=== PATIENT | female | born 1975 | race African-American/Black ===

== ENCOUNTER 2016-12-28 12:11 | Day surgery (SDC) | payer MEDICARE ==
[~2016-12-28] VITALS: Ht 170.2 cm; Wt 65.9 kg
[~2016-12-28 12:11] MED LIST: HYDROCODONE-APA1 TAB PO; RENAGEL800 MG PO; TUMS500 MG PO; XANAX2 MG PO
[2016-12-28] MEDS ORDERED: NORVASC10 MG PO ×2 (14:10)
[2016-12-28] MEDS ORDERED: CATAPRES0.3 MG PO ×2 (14:11→14:12)
[2016-12-28 14:23] VITALS: BP 174/113; Ht 170.2 cm; Wt 65.9 kg
[2016-12-28 14:58] LABS: HEMATOCRIT 28.4 % (36.0-48.0); HEMOGLOBIN 9.4 g/dL (12-16); MCH 29.5 pg (26.0-34.0); MCHC 33.1 g/dL (31.0-37.0); RBC 3.19 10x6/uL (4.00-5.40); RDW 14.9 % (11.5-14.5); WBC 6.6 10x3/uL (4.8-10.8)
[2016-12-28 15:08] LABS: ANION GAP 20.5 mmol/L (8-16); CALCIUM 10.5 mg/dL (8.5-10.1); CREATININE - SERUM 14.8 mg/dL (0.6-1.3); POTASSIUM - SERUM 4.5 mmol/L (3.5-5.1)
[2016-12-28 15:09] LABS: INR 1.1 (0.85-1.17); PROTIME 14.1 SECONDS (11.6-15.0)
--- NOTE | 2016-12-28 16:42 | NUR ---
1550- DR. ECHEVERRIA AT BEDSIDE, DISCUSSED FINDINGS WITH PT 1625- IV D/C'D, TESSIO TO LEFT THIGH, FLUSHED AND 2.2 ML OF 1000U/ML HEPARIN PLACED IN LINE, CLAMPED, AND CAPPED WITH PRN ADAPTOR AND ALCOHOL SWAB CAP 1630- DISCHARGE INSTRUCTIONS COMPLETED. PT VERBALIZED UNDERSTANDING. PAPERWORK SIGNED. 1635- PT DISCHARGED VIA WHEELCHAIR WITH DAUGHTER
--- NOTE | 2017-01-17 11:24 | OP ---
PATIENT NAME: ROSHNI HERNANDEZ MEDICAL RECORD: [id number] :71 LOCATION:D.OPS ADMISSION DATE: SURGEON: VANESSA ECHEVERRIA MD DATE OF OPERATION: 12/28/2016 PROCEDURE: Colonoscopy with snare polypectomy. CITY MANAGER: Vanessa Echeverria MD. SCOPE: Olympus video colonoscope. MEDICATIONS: Per TIVA anesthesia. The patient used 500 mg of propofol IV push for this procedure in small increments, and O2 4 liters. INDICATION FOR THE PROCEDURE: Hematochezia. INDICATION FOR TIVA: End-stage renal disease, hypothyroidism, hypertension. FINDINGS: Informed consent was given. The patient was made comfortable with the above medications. After reaching an adequate level of sedation by slow IV push, the patient was placed on her left side. The rectal exam revealed good sphincter tone, no fissures or fistulas were appreciated. No external skin tags were seen. The colonoscope was advanced to the cecum where the ileocecal valve and appendiceal orifice were identified. The patient had some pelvic adhesions adding to the difficulty of this procedure. On withdrawal of the scope, very mild left-sided diverticulosis without diverticulitis was appreciated. At the distal sigmoid area at approximately 20 cm, a 1.5-cm polyp on a stalk was noted and was removed first with a snare then the visible vessel was photocoagulated with hot biopsy forcep technique. On retroflexion and final withdrawal of the scope, internal hemorrhoids were noted. IMPRESSION: 1. A 1.5 cm pedunculated polyp in the distal sigmoid area at 20 cm. The polyp was 1.5 cm in size and was removed via snare biopsy. The residual polyp and visible vessel was then photocoagulated with 20 joules with a good result. 2. Very mild left-sided diverticulosis without diverticulitis. 3. Internal hemorrhoids, which are also the cause of the patient's hematochezia. The polyp is certainly very vascular and also was contributing to the problem of jessi hematochezia. 4. Mild left-sided diverticulosis without diverticulitis. PLAN: 1. No aspirin or anti-inflammatory drugs times 14 days. 2. High-fiber diet. 3. Return to clinic on a p.r.n. basis. TRANSINT:[id number] Voice Confirmation ID: [id number] DOCUMENT ID: [id number] OPERATIVE REPORT [id number] ROSHNI HERNANDEZ BRENDA MD at 1124 CC: KARLA ODTSON [id number] DICTATION DATE: 12/28/16 1525 INVESTIGATOR CASH SHORTAGE: 12/28/16 1600 [facility] 12/28/16 [place] [id number] [place] [id number]
== END 2016-12-28 16:35 | disposition home or self-care (01) ==
LOC: D.OPS 12:11
PROVIDERS: Anesthesiology
DX: D12.5 Benign neoplasm of sigmoid colon (principal); K57.30 Diverticulosis of large intestine without perforation or abscess without bleeding; K64.8 Other hemorrhoids; I12.0 Hypertensive chronic kidney disease with stage 5 chronic kidney disease or end stage renal disease; N18.6 End stage renal disease; E03.9 Hypothyroidism, unspecified

== ENCOUNTER 2017-04-05 10:58 | Day surgery (SDC) | payer MEDICARE ==
[~2017-04-05] VITALS: Ht 170.2 cm; Wt 68.2 kg
--- NOTE | ~2017-04-05 | OP ---
PATIENT NAME: JUNE HERNANDEZ MEDICAL RECORD: [id number] :71 LOCATION:FELY ADMISSION DATE: SURGEON: AJAY IBARRA DO DATE OF OPERATION: 04/05/2017 PROCEDURE: EGD. INDICATIONS: History of gastric ulcers. This is a 12-week followup procedure. SCOPE: Olympus video gastroscope. MEDICATIONS: Propofol 200 mg IV per anesthesia. ESTIMATED BLOOD LOSS: None. COMPLICATIONS: None. FINDINGS: Informed consent was given. The patient was made comfortable with the above medication. After reaching an adequate level of sedation by slow IV push, the patient was placed on her left side. The endoscope was then advanced under direct visualization through the mouth to the level of the second portion of the duodenum. The upper esophagus appeared normal. The middle and distal thirds of the esophagus had a few small esophageal erosions. One of these erosions did have some oozing when gently probed. At the GE junction, there was evidence of moderate LA class C, reflux induced esophagitis. The endoscope was advanced beyond the GE junction and retroflexed to view the cardia, where a small sliding hiatal hernia was present. In the fundus and body of the stomach, there was a small amount of food retention. There was also some edema and congestion involving the body of the stomach. Scope was advanced down to the antrum and prepyloric region where the previously identified ulcers appeared to be healed. There were a few erosions in the antrum and prepyloric region. The scope was advanced beyond the pylorus into the duodenum where the bulb and second portion of the duodenum appeared normal. The endoscope was then withdrawn from the patient. The patient tolerated the procedure well and there were no complications. IMPRESSION: 1. Few small esophageal erosions. 2. LA class C, reflux induced esophagitis. 3. Small sliding hiatal hernia. 4. Food retention. 5. Edematous gastritis of the body. 6. Healed gastric ulcers. 7. Gastric erosions in the antrum and prepyloric region. 8. Normal duodenum. PLAN AND RECOMMENDATIONS: 1. Discharge home when recovery parameters are met. 2. Continue current diet. 3. Continue current medications. 4. Add Pepcid 40 mg p.o. at bedtime to medication regimen. 5. Add Nexium 40 mg daily in a.m. times 30 days. 6. Continue Carafate. 7. Follow up in GI clinic as needed. OPERATIVE REPORT [id number] JUNE HERNANDEZ TRANSINT:[id number] Voice Confirmation ID: [id number] DOCUMENT ID: [id number] AJAY IBARRA DO CC: [id number] DICTATION DATE: 04/05/171447 ELECTRONIC INTEGRATED SYSTEMS MECHANIC: 04/05/17 2357 [facility] 04/05/17 [place] [id number] [place] [id number]
[~2017-04-05 10:58] MED LIST changes: +CATAPRES0.3 MG PO; +NORVASC10 MG PO
[2017-04-05 12:29] LABS: BASOPHILS 0.5 % (0-2); EOSINOPHILS 5.7 % (0-7); HEMATOCRIT 26.5 % (36.0-48.0); HEMOGLOBIN 8.8 g/dL (12-16); IMMATURE GRANULOCYTES 0.2 % (0-5); LYMPHOCYTES 19.5 % (15-50); MCH 31.3 pg (26.0-34.0); MCHC 33.2 g/dL (31.0-37.0); MCV 94.3 fL (80.0-100.0); MEAN PLATELET VOLUME 10.7 fL (7.4-10.4); MONOCYTES 6.7 % (2-11); NEUTROPHILS 67.4 % (40-80); PLATELET COUNT 137 10x3/uL (130-400); RBC 2.81 10x6/uL (4.00-5.40); RDW 14.9 % (11.5-14.5); WBC 5.8 10x3/uL (4.8-10.8)
[2017-04-05 12:37] LABS: APTT 30.9 SECONDS (22.8-39.4); INR 1.08 (0.85-1.17); PROTIME 13.9 SECONDS (11.6-15.0)
[2017-04-05 12:40] LABS: CALCIUM 9.6 mg/dL (8.5-10.1); CREATININE - SERUM 9.2 mg/dL (0.6-1.3)
[2017-04-05 13:21] VITALS: Ht 170.2 cm; Wt 68.2 kg
--- NOTE | 2017-04-05 16:41 | NUR ---
1620--DIALYSIS CATHETER FLUSHED AND IV DC'D. PT UP TO DRESS. HARRIS BROWN 4837--DISCHARGE INSTRUCTIONS GIVEN, PT VERBALIZES UNDERSTANDING. PT OFF UNIT VIA WC. HARRIS BROWN
== END 2017-04-05 16:35 | disposition home or self-care (01) ==
LOC: D.OPS 10:58
PROVIDERS: Anesthesiology
DX: K22.10 Ulcer of esophagus without bleeding (principal); K44.9 Diaphragmatic hernia without obstruction or gangrene; K21.0 Gastro-esophageal reflux disease with esophagitis; K29.70 Gastritis, unspecified, without bleeding; K25.9 Gastric ulcer, unspecified as acute or chronic, without hemorrhage or perforation; Z01.812 Encounter for preprocedural laboratory examination

== ENCOUNTER 2017-04-17 06:45 | Day surgery (SDC) | payer MEDICARE ==
[~2017-04-17] VITALS: Ht 170.2 cm; Wt 67.3 kg
--- NOTE | ~2017-04-17 | HP ---
PATIENT: JUNE HERNANDEZ MEDICAL RECORD: [id number] ACCOUNT: [id number] LOCATION:FELY : 71 ADMISSION DATE: 04/17/17 HISTORY AND PHYSICAL EXAMINATION CHIEF COMPLAINT: Colon polyp. HISTORY OF PRESENT ILLNESS: The patient has a complex polyp at 20 cm, which was a tubular adenoma with low-grade atypia. She is to undergo colonoscopy with argon plasma pickle sorter. The risks, possible complications and alternatives to the procedure were explained to the patient. She elects to proceed. SOCIAL HISTORY: Nonsmoker. PAST MEDICAL AND SURGICAL HISTORY: End-stage renal disease, hypertension, anxiety. REVIEW OF SYSTEMS: Negative for CVA or seizures. Negative for diabetes or thyroid problems. HOME MEDICINES: Norvasc, Catapres, Xanax, [place], Tums. ALLERGIES: PENICILLIN, BETADINE, MORPHINE, SHELLFISH. REVIEW OF SYSTEMS: No nausea, no vomiting, no fever, no chills. PHYSICAL EXAMINATION: GENERAL: The patient does not appear acutely ill. She does not appear chronically ill. VITAL SIGNS: Reviewed. HEAD: External ears appear normal. EYES: Extraocular movements are intact. NECK: Trachea is midline. CHEST: No intercostal retractions. PULMONARY: Nonlabored, no stridor. ABDOMEN: Nontender. IMPRESSION: Complex colon polyp at 20 cm, tubular adenoma with low-grade atypia. PLAN: Colonoscopy with argon plasma pickle sorter. TRANSINT:[id number] Voice Confirmation ID: [id number] DOCUMENT ID: [id number] 04/17/2017 CC: Dr. Gilbert in [place], not located. HISTORY AND PHYSICAL [id number] JUNE HERNANDEZ DULCE BARRETT MD CC: RHYS CASTANEDA MD and KOMAL ECHEVERRIA MD [id number] DICTATION DATE: 04/17/17 1351 [employer] ACQUISITION[employer] BANKER: 04/17/17 1412 [facility] 04/17/17 [place] [id number] [place] [id number]
--- NOTE | ~2017-04-17 | OP ---
PATIENT NAME: JUNE HERNANDEZ MEDICAL RECORD: [id number] :71 LOCATION:D.OPS ADMISSION DATE: SURGEON: DULCE BARRETT MD DATE OF OPERATION: 04/17/2017 PREOPERATIVE DIAGNOSIS: Colon polyp at 20 cm with atypia. POSTOPERATIVE DIAGNOSIS: Colon polyp at 20 cm with atypia with inadequate prep. PROCEDURE: Aborted colonoscopy. SURGEON: Dulce Barrett MD. ATTIC FANS MECHANIC: None. BLOOD LOSS: Minimal. ANESTHESIA: General. COMPLICATIONS: None. Despite the fact that the patient stated that she took prep, there was a large amount of solid fecal material within the colon and I could not advance past 40 cm. I withdrew, I irrigated and aspirated extensively. I was unable to identify the polyp. I utilized regular imaging as well as narrow band imaging. The endoscope was withdrawn under direct vision. I will plan for a repeat colonoscopy after a 2-day prep. I have talked to Shaheen in my office, who will set Ms. Hernandez up for this procedure sometime in the future. TRANSINT:[id number] Voice Confirmation ID: [id number] DOCUMENT ID: [id number] 04/18/2017 CC: Dr. Gilbert in [place], could not locate. DULCE BARRETT MD CC: RHYS CASTANEDA MD and KOMAL ECHEVERRIA MD [id number] DICTATION DATE: 04/17/17 1401 DRAFTING SUPERVISOR: 04/17/172221 [facility] 04/17/17 [facility] [address] [place] [address]
[2017-04-17 08:32] VITALS: Ht 170.2 cm; Wt 67.3 kg
--- NOTE | 2017-04-17 09:30 | NUR ---
0930 IV ATTEMPTED X'S 1 UNSUCCESSFULY TO RIGHT AC FOSSA. OR, JANETH DELGADO R.N. NOTIFIED UNABLE TO ACCESS IV & PT IS A RENAL PATIENT WELL PT STATES DIFFICULTY OBTAINING IV ON LAST VISIT TO HOSPITAL. Emanuel DELGADO STATES SHE WILL NOTIFY ANESTHSIA. Gabriel BEJARANO R.N.
[2017-04-17 09:33] LABS: BASOPHILS 0.2 % (0-2); EOSINOPHILS 2.9 % (0-7); HEMATOCRIT 29.6 % (36.0-48.0); HEMOGLOBIN 9.5 g/dL (12-16); IMMATURE GRANULOCYTES 0.2 % (0-5); LYMPHOCYTES 19.6 % (15-50); MCH 31.6 pg (26.0-34.0); MCHC 32.1 g/dL (31.0-37.0); MCV 98.3 fL (80.0-100.0); MEAN PLATELET VOLUME 9.9 fL (7.4-10.4); NEUTROPHILS 64.1 % (40-80); RBC 3.01 10x6/uL (4.00-5.40); RDW 15.1 % (11.5-14.5); WBC 5.2 10x3/uL (4.8-10.8)
--- NOTE | 2017-04-17 09:35 | NUR ---
0935 LAB DRAWN RESULTS PENDING. CXR ORDERED. Gabriel BEJARANO R.N.
[2017-04-17 09:36] LABS: ANION GAP 15.1 mmol/L (8-16); CALCIUM 9.7 mg/dL (8.5-10.1); CARBON DIOXIDE 24.6 mmol/L (21.0-32.0); CREATININE - SERUM 7.6 mg/dL (0.6-1.3); POTASSIUM - SERUM 4.7 mmol/L (3.5-5.1)
[2017-04-17 09:38] LABS: APTT 44.5 SECONDS (22.8-39.4); INR 1.2 (0.85-1.17); PROTIME 15.1 SECONDS (11.6-15.0)
[2017-04-17 09:49] LABS: PLATELET COUNT 247 10x3/uL (130-400)
--- NOTE | 2017-04-17 10:10 | NUR ---
1003 ABNORMAL LAB VALUES REPORTED TO DR. BARRETT PER PHONE. PT: 15.1, INR: 1.2, PTT: 44.5, HGB: 9.5, HCT: 29.6. STATES "OKAY". NO ORDERS RECEIVED. Gabriel BEJARANO R.N.
== END 2017-04-17 14:50 | disposition home or self-care (01) ==
LOC: D.OPS 06:45
PROVIDERS: Anesthesiology
DX: D12.5 Benign neoplasm of sigmoid colon (principal); I12.0 Hypertensive chronic kidney disease with stage 5 chronic kidney disease or end stage renal disease; N18.6 End stage renal disease; F41.9 Anxiety disorder, unspecified; Z79.891 Long term (current) use of opiate analgesic; Z79.899 Other long term (current) drug therapy; Z88.8 Allergy status to other drugs, medicaments and biological substances; Z88.5 Allergy status to narcotic agent; Z91.013 Allergy to seafood

== ENCOUNTER 2017-07-10 06:55 | Day surgery (SDC) | payer MEDICARE ==
[~2017-07-10] VITALS: Ht 170.2 cm; Wt 63.0 kg
[2017-07-10 08:54] VITALS: Ht 170.2 cm; Wt 63.0 kg
[2017-07-10 08:58] LABS: BASOPHILS 0.4 % (0-2); HEMATOCRIT 36.3 % (36.0-48.0); HEMOGLOBIN 12.4 g/dL (12-16); IMMATURE GRANULOCYTES 0.4 % (0-5); LYMPHOCYTES 19.5 % (15-50); MCH 33.3 pg (26.0-34.0); MCHC 34.2 g/dL (31.0-37.0); MCV 97.6 fL (80.0-100.0); MEAN PLATELET VOLUME 9.4 fL (7.4-10.4); MONOCYTES 13.2 % (2-11); NEUTROPHILS 63.5 % (40-80); PLATELET COUNT 198 10x3/uL (130-400); RBC 3.72 10x6/uL (4.00-5.40); RDW 15.2 % (11.5-14.5); WBC 5.7 10x3/uL (4.8-10.8)
[2017-07-10 09:07] LABS: APTT 41.8 SECONDS (22.8-39.4); INR 1.14 (0.85-1.17); PROTIME 14.5 SECONDS (11.6-15.0)
[2017-07-10 09:08] LABS: ANION GAP 19.6 mmol/L (8-16); CALCIUM 9.1 mg/dL (8.5-10.1); CARBON DIOXIDE 23.3 mmol/L (21.0-32.0); POTASSIUM - SERUM 4.9 mmol/L (3.5-5.1)
--- NOTE | 2017-07-10 17:05 | NUR ---
PATIENT WALKING AROUND ROOM, RIGHT UPPER ARM PIV DC'D WITH TIP INTACT. BLOOD PRESSURE IMPROVED, PATIENT STATES HEADACHE IS "ABOUT GONE." RATES AT A 2 ON 0-10 SCALE. DISCHARGE INSTRUCTIONS REVIEWED WITH PATIENT, PATIENT DISCHARGED HOME VIA WHEELCHAIR TO PRIVATE VEHICLE WITH AUNT
--- NOTE | 2017-07-12 09:08 | OP ---
PATIENT NAME: JUNE HERNANDEZ MEDICAL RECORD: [id number] :71 LOCATION:D.OPS ADMISSION DATE: SURGEON: DULCE BARRETT MD DATE OF OPERATION: 07/10/2017 PREOPERATIVE DIAGNOSIS: History of a complex colon polyp, which was an adenomatous polyp with low-grade atypia at 20 cm. POSTOPERATIVE DIAGNOSES: History of a complex colon polyp, which was an adenomatous polyp with low-grade atypia at 20 cm with no evidence of residual polypoid tissue; however, there was a de kerrie polyp at 19 cm, which was a 1.0 cm sessile polyp. PROCEDURES: 1. Total colonoscopy to cecum. 2. Hot biopsy forceps polypectomy times 1. SURGEON: Dulce Barrett MD. SKID ROAD MAN: None. BLOOD LOSS: Minimal. ANESTHESIA: IV sedation. COMPLICATIONS: None. The risks, possible complications, alternatives to the procedure were explained to the patient. She elects to proceed. OPERATIVE COURSE: The patient was conveyed to the operating room electively on 07/10/2017. General anesthesia was induced by the anesthesia staff. The patient was placed in the Davis position. A digital rectal examination was performed. A colonoscope was inserted through the anus. It was easily advanced to the cecum. I slowly withdrew the endoscope. I went 10 times between 10 cm and 50 cm looking for residual polypoid tissue or scar and could identify none. I dragged the folds. The pullback was greater than a 25-minute pullback. The prep was adequate. I dragged the folds, I noted no scarring. There was a sessile polyp that I do not think is residual polypoid tissue from the initial colonoscopy. This polyp was removed in its entirety utilizing the hot biopsy forceps polypectomy technique. A retroflexed view was obtained in the rectum. I then unretroflexed the scope and removed it under direct vision. I will see the patient in my office in 2-3 weeks. It is very likely I will return the patient back to her venetian blind tape cutter for surveillance endoscopies in the future. TRANSINT:[id number] Voice Confirmation ID: [id number] DOCUMENT ID: [id number] OPERATIVE REPORT [id number] JUNE HERNANDEZ DULCE BARRETT MD at 0908 CC: RHYS CASTANEDA MD, RONEN ALTAMIRANO MD, KOMAL ECHEVERRIA MD and [id number] Dary DO DICTATION DATE: 07/10/17 1459 TASSEL MAKING MACHINE OPERATOR: 07/10/17 1852 [facility] 07/10/17 [place] [id number] [place] [address]
--- NOTE | 2017-07-12 09:08 | HP ---
PATIENT: JUNE HERNANDEZ MEDICAL RECORD: [id number] ACCOUNT: [id number] LOCATION:DSANTIAGO : 71 ADMISSION DATE: 07/10/17 HISTORY AND PHYSICAL EXAMINATION HISTORY OF PRESENT ILLNESS: The patient underwent colonoscopy and was found to have a complex colon polyp at 20 cm. It was complex as there was atypia within the polyp. This was a 1.5-cm sigmoid colon polyp, which was an adenomatous polyp with focal low-grade atypia dysplasia. The patient was referred to me. I attempted a colonoscopy on 04/17/2017; however, it was aborted due to inadequate prep. The patient states that she is now adequately prepped. The risks, possible complications and alternatives to colonoscopy utilizing argon plasma psychologist clinical were explained to the patient. She elects to proceed. PAST MEDICAL AND SURGICAL HISTORY: Hypothyroidism, on replacement therapy; hypertension; depression; gastroesophageal reflux; end-stage renal disease, on dialysis Sunday, Sunday, Sunday; cervical cancer; cholecystectomy; thyroidectomy. SOCIAL HISTORY: Nonsmoker. HOME MEDICINES: Norvasc, Catapres, Xanax, [place], [place], as well as Tums. ALLERGIES: PENICILLIN, MORPHINE, BETADINE AND SHELLFISH. PHYSICAL EXAMINATION: GENERAL: The patient does not appear acutely ill. She does appear chronically ill. VITAL SIGNS: Reviewed. HEAD: External ears appear normal. EYES: Extraocular movements are intact. NECK: Trachea is midline. CHEST: No intercostal retractions. PULMONARY: Nonlabored, no stridor. ABDOMEN: Nontender. IMPRESSION: Complex colon polyp at 20 cm. PLAN: Will be colonoscopy and polypectomy utilizing the argon plasma psychologist clinical. TRANSINT:[id number] Voice Confirmation ID: [id number] DOCUMENT ID: [id number] DULCE BARRETT MD at 0908 CC: RHYS CASTANEDA MD, KOMAL ECHEVERRIA MD and AJAY IBARRA [id number] DICTATION DATE: 07/10/17 1454 JUNIOR FINANCIAL ANALYST: 07/10/[address] [facility] 07/10/17 [place] [address]
== END 2017-07-10 17:05 | disposition home or self-care (01) ==
LOC: D.OPS 06:55
PROVIDERS: Anesthesiology
DX: K63.5 Polyp of colon (principal); I10 Essential (primary) hypertension; K21.9 Gastro-esophageal reflux disease without esophagitis; N28.9 Disorder of kidney and ureter, unspecified; Z01.812 Encounter for preprocedural laboratory examination